=== PATIENT | female | born 1990 | race Caucasian/White ===

== ENCOUNTER 2022-11-03 17:43 | Emergency (ER) | payer BC, SELFPAY ==
--- NOTE | 2022-11-03 18:36 | ED_ITS ---
HPI - Nausea/Vomiting/Diarrhea General Chief complaint: Abdominal Pain <AMEYA Jimenez Last Filed: 11/03/22 18:39> Stated complaint: Nausea and Vomiting <AMEYA Jimenez Last Filed: 11/03/22 18:39> Time Seen by Provider: 11/03/22 22:35 <AMEYA Jimenez - Last Filed: 11/03/22 18:39> Source: patient <Rena Alvarado DO - Last Filed: 11/04/22 00:45> Mode of arrival: ambulatory <Rena Alvarado DO - Last Filed: 11/04/22 00:45> Limitations: no limitations <Rena Alvarado DO - Last Filed: 11/04/22 00:45> History of Present Illness HPI Narrative: 31 yo female hx of endometriosis here with n/v monthly related to her monthly cycle though she does not get her menses due to IUD. This happens frequently to her no change in monthly exacerbation. She has no urinary symptoms. No localized abdominal pain. No fevers. She did try to call her PCP for zofran but they would not fill Rx. The patient notes this episode lasted longer and she had decreased intake compared to other bouts. <Rena Alvarado DO - Last Filed: 11/04/22 00:45> MD elicited complaint: nausea, vomiting and abdominal pain <Rena Alvarado DO - Last Filed: 11/04/22 00:45> Pertinent past history: other (endometriosis) <Rena Alvarado DO - Last Filed: 11/04/22 00:45> Onset (ago): day(s) (2) <Rena Alvarado DO - Last Filed: 11/04/22 00:45> Description of vomiting: watery <Rena Alvarado DO - Last Filed: 11/04/22 00:45> Associated nausea: Yes <Rena Alvarado DO - Last Filed: 11/04/22 00:45> Associated abdominal pain: Yes <Rena Alvarado DO - Last Filed: 11/04/22 00:45> Location of pain: suprapubic <Rena Alvarado DO - Last Filed: 11/04/22 00:45> Radiation: diffuse <Rena Alvarado DO - Last Filed: 11/04/22 00:45> Pain consistency: intermittent <Rena ChristianoDO - Last Filed: 11/04/22 00:45> Severity: mild <Rena ChristianoDO - Last Filed: 11/04/22 00:45> Quality: cramping <Rena AlvaradoDO - Last Filed: 11/04/22 00:45> Exacerbating factors: eating <Rena ChristianoDO - Last Filed: 11/04/22 00:45> Relieving factors: none <Rena Alvarado DO - Last Filed: 11/04/22 00:45> Context: other (monthly) <Rena Albia, DO - Last Filed: 11/04/22 00:45> Associated symptoms: loss of appetite, malaise and nausea/vomiting <Rena Alvarado DO - Last Filed: 11/04/22 00:45> Related Data Home medications: Previous Rx's Medication Instructions Recorded ondansetron 4 mg disintegrating 4 mg PO Q8H PRN nausea and 11/04/22 tablet vomiting #20 tabs <AMEYA Jimenez Last Filed: 11/03/22 18:39> Allergies/Adverse reactions: Allergies Allergy/AdvReac Type Severity Reaction Status Date / Time amoxicillin [From Augmentin] Allergy Hives Verified 11/03/22 18:38 clavulanic acid Allergy Hives Verified 11/03/22 18:38 [From Augmentin] Sulfa (Sulfonamide Allergy Hives Verified 11/03/22 18:38 Antibiotics) <AMEYA Jimenez Last Filed: 11/03/22 18:39> Review of Systems Review of Systems: Constitutional : No Weight loss, No Fever, No Chills ENT/Mouth : No sore throat, No Rhinorrhea Eyes: No Swelling, No Redness Cardiovascular : No Chest Pain, No SOB, NoEdema Respiratory : No Cough, No Sputum, No Wheezing Gastrointestinal : Positive Nausea, Positive Vomiting, no Diarrhea, positive abdominal Pain, No Hematochezia, No Melena Genitourinary : No Dysuria, No Urinary Frequency, No Hematuria, No Urgency Musculoskeletal : No joint pain, No Myalgias, No Joint Swelling Skin : No Skin Lesions, No rash Neuro : No Weakness, No Numbness, No Dizziness, No Headache Psych : No Anxiety/Panic, No Depression Heme/Lymph: No Bruising, No Lymphadenopathy Endocrine : No Polyuria, No Polydipsia All other systems reviewed and are negative. <Rena Alvarado DO - Last Filed: 11/04/22 00:45> Gastrointestinal: Gastrointestinal: Reports nausea <Rena Alvarado DO - Last Filed: 11/04/22 00:45> [facility] Past Medical History Attestation statement: The following information was validated with the patient. <Rena Alvarado DO - Last Filed: 11/04/22 00:45> Medical History: Medical History Endometriosis <AMEYA Jimenez - Last Filed: 11/03/22 18:39> Surgical History: Surgical History H/O laparoscopy <AMEYA Jimenez - Last Filed: 11/03/22 18:39> Social History Social History: Social History (Updated 11/03/22 @ 23:13 by Rena Alvarado DO) Patient Tobacco Use Status: Never used Tobacco Advance Directives: Yes Advance Directives Information Provided: Yes Advance Directives on File: No <AMEYA Jimenez - Last Filed: 11/03/22 18:39> Physical Exam Vital Signs: Vital Signs: Last Vital Signs Temp 98.4 F 11/03/22 18:39 Pulse 91 11/03/22 18:39 Resp 18 11/03/22 18:39 BP 148/77 H 11/03/22 18:39 Pulse Ox 98 11/03/22 18:39 O2 Del Method 11/03/22 18:39 BMI result Body Mass Index 41.5 <AMEYA Jimenez - Last Filed: 11/03/22 18:39> Vital Signs: Last Vital Signs Temp 98.4 F 11/03/22 18:39 Pulse 91 11/03/22 18:39 Resp 18 11/03/22 18:39 BP 148/77 H 11/03/22 18:39 Pulse Ox 98 11/03/22 18:39 O2 Del Method 11/03/22 18:39 BMI result Body Mass Index 41.5 <Rena Alvarado DO - Last Filed: 11/04/22 00:45> Appearance: Alert. Oriented X3. No acute distress. Eyes: Pupils equal, round and reactive to light. ENT: Pharynx normal. Neck: Normal inspection. Neck supple. CVS: Normal heart rate and rhythm. Pulses normal. Respiratory: No respiratory distress. Breath sounds normal. Abdomen: Soft and nontender. Skin: Skin warm and dry. Normal skin color. Normal skin turgor. Extremities: No lower extremity edema. No calf ttp Neuro: Oriented X 3. No motor deficit. No sensory deficit. 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 Tells me has drank 20 oz of liquids all day. Reports lower abd pain. Told to come into ED by PCP, they told her shes dehydrated. Physical- TTP to lowr abdomen. Appears comfortable nontoxic. Plan labs,UA, Urine preg, Flu/COVID/RSV, fluids <AMEYA Jimenez - Last Filed: 11/03/22 18:39> Reevaluation(s) Reevaluation #1: feels better stable for DC <Rena Alvarado DO - Last Filed: 11/04/22 00:45> Medications Administered Discontinued Medications Generic Name Dose Route Start Last Admin Trade Name Freq PRN Reason Stop Dose Admin Sodium Chloride 1,000 mls @ 999 mls/hr 11/03/22 18:45 11/03/22 22:53 Ns IV 11/03/22 19:45 999 mls/hr .Q1H1M MAREK Administration Lactated Ringer's 1,000 mls @ 999 mls/hr 11/03/22 23:00 11/03/22 23:03 Lr IV 11/04/22 00:00 999 mls/hr .Q1H1M MAREK Administration Ondansetron HCl 4 mg 11/03/22 22:49 11/03/22 23:03 Ondansetron Hcl 4 Mg/2 Ml Vial IVPUSH 11/03/22 22:50 4 mg ONCE ONE Administration <AMEYA Jimenez - Last Filed: 11/03/22 18:39> Medications Administered Discontinued Medications Generic Name Dose Route Start Last Admin Trade Name Siobhan PRN Reason Stop Dose Admin Sodium Chloride 1,000 mls @ 999 mls/hr 11/03/22 18:45 11/03/22 22:53 Ns IV 11/03/22 19:45 999 mls/hr .Q1H1M MAREK Administration Lactated Ringer's 1,000 mls @ 999 mls/hr 11/03/22 23:00 11/03/22 23:03 Lr IV 11/04/22 00:00 999 mls/hr .Q1H1M MAREK Administration Ondansetron HCl 4 mg 11/03/22 22:49 11/03/22 23:03 Ondansetron Hcl 4 Mg/2 Ml Vial IVPUSH 11/03/22 22:50 4 mg ONCE ONE Administration <Rena Alvarado DO - Last Filed: 11/04/22 00:45> Medical Decision Making Medical Decision Making MDM Narrative: 31 yo female with hx of endometriosis and then monthly n/v that cycles around her time when she should get her menses though she does not due to IUD. She has benign abdominal exam no fevers. I do not suspect appendicitis or cholelithiasis. At this time basic labs, UA, IVF and zofran - will PO challenge the patient once she can do that anticipate DC home with supportive measures. <Rena Alvarado DO - Last Filed: 11/04/22 00:45> Differential Diagnoses: Differential diagnosis (gastroenteritis, gastritis, UTI) <Rena Alvarado DO - Last Filed: 11/04/22 00:45> Lab Attestation: I reviewed the patient's lab results. <Rena Alvarado DO - Last Filed: 11/04/22 00:45> Tests considered but not performed: Tests Considered But Not Performed (pelvis ultrasound - chronic issue doubt changes benign abdominal exam I do not suspect torsion) <Rena Alvarado DO - Last Filed: 11/04/22 00:45> Discharge Plan Discharge Clinical Impression: Vomiting Qualifiers: Vomiting type: unspecified Nausea presence: with nausea Qualified Code(s): R11.2 - Nausea with vomiting, unspecified <AMEYA Jimenez Last Filed: 11/03/22 18:39> Patient Disposition: Home, Self-Care <AMEYA Jimenez Last Filed: 11/03/22 18:39> Instructions: Acute Nausea and Vomiting (ED) <AMEYA Jimenez - Last Filed: 11/03/22 18:39> Additional Instructions: return to ED for any worsening symptoms or concerns stay hydrated drink plenty of fluids, stick to bland diet for 3 days follow up with your OBGYN if this continues <AMEYA Jimenez - Last Filed: 11/03/22 18:39> Prescriptions: New ondansetron 4 mg tablet,disintegrating 4 mg PO Q8H PRN (Reason: nausea and vomiting) Qty: 20 0RF <AMEYA Jimenez - Last Filed: 11/03/22 18:39> Stand Alone Forms: Work/School Release <AMEYA Jimenez - Last Filed: 11/03/22 18:39>
[2022-11-03 18:39] VITALS: BP 148/77; PULSE 91; RESP 18; TEMP 36.9; O2SAT 98; BMI 41.5
[2022-11-03 19:50] LABS: MANUAL DIFF FLAG NO
[2022-11-03 19:54] LABS: Basophils Percent Auto 0.4 % (0-2); Eosinophils Absolute Auto 0.5 X10*3/uL (0.0-0.4); Hematocrit 40.5 % (37.0-47.0); Hemoglobin 13.9 g/dl (12.0-16.0); Imm Gran Abs Auto 0.02 X10*3/uL (0.00-0.03); Imm Gran Pct Auto 0.2 % (0.0-0.4); Lymphocytes Absolute Auto 2.6 X10*3/uL (1.2-4.9); Mean Corpuscular HGB Conc 34.3 g/dl (31.0-35.0); Mean Corpuscular Hemoglobin 29.8 pg (27.0-33.0); Mean Corpuscular Volume 86.9 fL (80.0-98.0); Mean Platelet Volume 10.2 fL (9.4-12.3); Monocytes Absolute Auto 0.4 X10*3/uL (0.1-1.2); Monocytes Percent Auto 4.5 % (2-11); Neutrophils Absolute Auto 6.2 x10*3/uL (2.0-8.3); Neutrophils Percent Auto 62.9 % (45-73); Platelet Count 214 X10*3/uL (160-400); Red Blood Count 4.66 X10*6/uL (4.20-5.50); Red Cell Distribution Width 11.8 % (11.0-16.0); White Blood Count 9.8 X10*3/uL (4.8-10.8)
[2022-11-03 20:39] LABS: Influenza A PCR NEGATIVE (Negative); Influenza B PCR NEGATIVE (Negative); Resp Syncy Virus RNA Qual PCR NEGATIVE (Negative); SARS COV2 PCR INHOUSE NEGATIVE (Negative)
[2022-11-03] MEDS: 0.9 % Sodium Chloride 1,000 ML 999 ML IV (22:53)
[2022-11-03] MEDS: Lactated Ringers 1,000 ML 999 ML IV (23:03)
[2022-11-03] MEDS: ondansetron HCL 4 MG/2 ML VIAL IVPUSH (23:03)
[2022-11-03 23:23] LABS: Alanine Aminotransferase 30 U/L (0-31); Albumin Level 4.6 g/dL (3.5-5.0); Alkaline Phosphatase 81 U/L (39-117); Anion Gap 12 (12-20); Aspartate Amino Transferase 22 U/L (5-31); Blood Urea Nitrogen 8 mg/dL (9-16); Calcium 9.2 mg/dL (8.4-10.2); Carbon Dioxide 28 mmol/L (22-29); Chloride 102 mmol/L (96-108); Creatinine Clr Calc Pharmacy 163.9; Estimated Glomerular Filt Rate > 60; Glucose Random 91 mg/dL (60-115); Potassium 4.1 mmol/L (3.3-5.1); Sodium 138 mmol/L (135-145)
--- NOTE | 2022-11-03 23:55 | PC.NURSE ---
Pt asked for urine sample pt report that they are unable to void at this time.
[2022-11-04 00:36] LABS: Appearance Urine Clear; Color Urine Yellow; Glucose Urine UA Negative (Negative); Leukocyte Esterase Urine Negative (Negative); Nitrite Urine Negative (Negative); PH 7.5 (5.0-9.0); Urine Blood Negative (Negative); Urine Ketones Trace mg/dL (Negative); Urine Protein Negative (Neg-Trace)
[2022-11-04 00:38] LABS: UPreg QC Valid YES; Urine Pregnancy NEGATIVE (NEGATIVE)
[2022-11-04 00:54] LABS: Bilirubin Total 0.6 mg/dL (0.0-1.0)
[2022-11-04 01:01] VITALS: BP 132/92; PULSE 88; RESP 18; TEMP 37.2; O2SAT 98
== END 2022-11-04 01:02 | disposition home or self-care (01) ==
PROVIDERS: Physician Assistant; Emergency Provider Emergency Medicine
DX: R11.2 Nausea with vomiting, unspecified (principal); R10.2 Pelvic and perineal pain; Z20.822 Contact with and (suspected) exposure to COVID-19; Z79.899 Other long term (current) drug therapy
CPT/HCPCS: 0241U; 36415; 80053; 81003; 81025; 83735; 85025; 96374; 99283; 99284; J2405

== ENCOUNTER 2025-03-30 20:14 | Emergency (ER) | payer BC, OTHER, SELFPAY ==
--- NOTE | ~2025-03-30 | CT_ITS ---
CLINICAL HISTORY: RLQ pain, R O appendicitis Exam: CT abdomen and pelvis with intravenous contrast. Comparison: None. Findings: CT abdomen: Lung bases are clear. No acute bony lesions. Low-attenuation throughout the liver is indicative of fatty infiltration. No focal liver lesions seen. Main portal vein is patent. Spleen, pancreas, gallbladder, and left adrenal gland are unremarkable. 2.2 cm nodule within the right adrenal gland with Hounsfield units ranging from 15-45. Symmetric enhancement of the kidneys without mass or hydronephrosis. Small bowel loops are of normal caliber. Several ovoid hyperdensities are seen within the gastrointestinal tract including the stomach, small bowel, and cecum. I suspect these are related to calcium tablet ingestion. No free fluid or free air. No pathologically enlarged lymph nodes. CT pelvis: No findings of appendicitis. No colonic wall thickening or pericolonic inflammatory stranding is evident. No free fluid or free air. No bladder calculi. 1.5 cm right adnexal cyst. Impression: 1. Negative CT of the appendix. 2. 1.5 cm right adnexal cyst. May consider pelvic ultrasound if the patient's symptoms are felt to be gynecologic in nature. 3. Right adrenal gland nodule. Statistically, this is likely an adrenal adenoma. However, this is not a definitive determination on single phase CT study. Correlation with any known primary malignancy is suggested. Nonemergent CT or MRI of the abdomen using the adrenal gland mass protocol is suggested. This document has been electronically signed by: Gage Bauer MD on 03/31/2025 03:17:13
[2025-03-30 21:07] VITALS: BP 126/82; PULSE 96; RESP 14; TEMP 36.7; O2SAT 98; BMI 39.0
[2025-03-30 21:32] LABS: Hematocrit 35.9 % (37.0-47.0); Hemoglobin 12.7 g/dl (12.0-16.0); Mean Corpuscular HGB Conc 35.4 g/dl (31.0-35.0); Mean Corpuscular Hemoglobin 30.2 pg (27.0-33.0); Mean Corpuscular Volume 85.3 fL (80.0-98.0); Mean Platelet Volume 9.7 fL (9.4-12.3); Platelet Count 201 X10*3/uL (160-400); Red Blood Count 4.21 X10*6/uL (4.20-5.50); Red Cell Distribution Width 11.9 % (11.0-16.0); White Blood Count 9.7 X10*3/uL (4.8-10.8)
[2025-03-30 21:46] LABS: Alanine Aminotransferase 32 U/L (0-31); Albumin Level 4.4 g/dL (3.5-5.0); Alkaline Phosphatase 88 U/L (39-117); Anion Gap 14 (12-20); Aspartate Amino Transferase 24 U/L (5-31); Bilirubin Total 0.5 mg/dL (0.0-1.0); Blood Urea Nitrogen 12 mg/dL (9-16); Calcium 9.3 mg/dL (8.4-10.2); Carbon Dioxide 26 mmol/L (22-29); Chloride 104 mmol/L (96-108); Creatinine Clr Calc Pharmacy 145.4; Estimated Glomerular Filt Rate > 60; Glucose Random 89 mg/dL (60-115); Potassium 4.1 mmol/L (3.3-5.1); Sodium 140 mmol/L (135-145); Total Protein 7.1 g/dL (6.5-8.0)
[2025-03-31 01:40] VITALS: BP 128/83; PULSE 86; RESP 16; TEMP 36.8; O2SAT 100
--- NOTE | 2025-03-31 01:46 | ED_ITS ---
HPI - General Adult General Chief complaint: General Medical Stated complaint: belly button wound Time Seen by Provider: 03/31/25 01:44 Source: patient Mode of arrival: ambulatory Limitations: no limitations History of Present Illness ED Provider: Dr. Jermaine Cox HPI narrative: 34-year-old female with a history endometriosis status post hysterectomy April 2024 who presents emergency department for evaluation of periumbilical pain. She states the pain came on gradually 1 day prior to evaluation. She states the pain is a constant, stretching /pulling pain which is 7/10 at its worst. The pain waxes and wanes in intensity. She states that she had a laparoscopic hysterectomy with a laparoscopic incisions I through her belly button. She states that this area is painful. She has noted some of moist your from the belly button but no blood. Triage nurse did insert a Q-tip in to the patient's umbilicus and there was blood on the Q-tip. The pain has migrated to the right lower quadrant area. Patient had associated nausea with no vomiting. She has had several loose stools since onset of the pain. She denied fever, chills, frequency, urgency, dysuria. She has not noted any dark stools, black stools or bloody stools. This is a 1st episode of this type of pain. Related Data Previous Rx's ?Medication ?Instructions ?Recorded ondansetron 4 mg disintegrating 4 mg PO Q8H PRN nausea and 11/04/22 tablet vomiting #20 tabs cephalexin 500 mg capsule 500 mg PO QID 7 days #28 caps 03/31/25 Allergies Allergy/AdvReac Type Severity Reaction Status Date / Time amoxicillin [From Augmentin] Allergy Hives Verified 03/30/25 21:11 clavulanic acid Allergy Hives Verified 03/30/25 21:11 [From Augmentin] Sulfa (Sulfonamide Allergy Hives Verified 03/30/25 21:11 Antibiotics) Review of Systems 2 Review of Systems: Yes all other systems are reviewed and are negative [facility] Past Medical History [facility] Narrative: Social history: The patient denies tobacco use, she occasionally drinks alcohol, she does smoke marijuana Medical History Endometriosis Surgical History H/O laparoscopy Social History Social History (Updated 11/03/22 @ 23:13 by Rena Alvarado DO) Patient Tobacco Use Status: Never used Tobacco Physical Exam ED Vital Signs: Vital Signs - 24 hr 03/30/25 21:07 03/31/25 01:40 Temperature 98.0 F 98.2 F Pulse Rate 96 86 Respiratory Rate 14 16 Blood Pressure 126/82 128/83 Pulse Oximetry 98 100 Oxygen Delivery Method Room Air Room Air BMI result Body Mass Index 39.0 vital signs were normal Exam: General: Awake, alert in no distress Head: Normocephalic, atraumatic EENT: PERRL, Lids normal, sclera normal, conjunctiva normal, nose normal , ears normal, throat without erythema or exudates Neck: Supple, no adenopathy Lung: breath sounds symmetric, no wheezing, rales or rhonchi Chest: symmetric movement, nontender Heart: regular rate and rhythm, normal S1, S2 no murmurs or rubs Abdomen: soft, [id number] periumbilical tenderness, moderate right lower quadrant tenderness, nondistended, normal bowel sounds, no erythema noted around the umbilical area, I did insert a Q-tip into the umbilicus and the patient did have pain and there was a small amount of red blood on the Q-tip, no purulent discharge noted Back: no vertebral tenderness, no CVAT Extremities: no deformities, moves all extremities symmetrically Neuro: Awake, alert, oriented, normal speech, cranial nerves intact, moves all extremities symmetrically Psych: Pleasant, cooperative Medications Administered Discontinued Medications Generic Name Dose Route Start Last Admin Trade Name Freq PRN Reason Stop Dose Admin Bacitracin 1 appl 03/31/25 04:59 03/31/25 05:09 Bacitracin Oint 0.9 Gm Packet TOPICAL 03/31/25 05:00 1 appl ONCE ONE Administration Protocol Cephalexin HCl 500 mg 03/31/25 04:59 03/31/25 05:11 Cephalexin 500 Mg Capsule PO 03/31/25 05:00 500 mg ONCE ONE Administration Sodium Chloride 1,000 mls @ 999 mls/hr 03/31/25 02:06 03/31/25 03:37 Ns IV 03/31/25 03:06 Infused .Q1H1M STA Infusion Iohexol 85 ml 03/31/25 02:31 03/31/25 02:32 Iohexol 350 Mg/Ml 100 Ml Infus..Btl IV 03/31/25 02:32 85 ml ONCE ONE Administration Ketorolac Tromethamine 15 mg 03/31/25 02:06 03/31/25 02:15 Ketorolac Tromethamine 15 Mg/Ml Vial IVPUSH 03/31/25 02:07 15 mg ONCE STA Administration Ondansetron HCl 4 mg 03/31/25 02:06 03/31/25 02:15 Ondansetron Hcl 4 Mg/2 Ml Vial IVPUSH 03/31/25 02:07 4 mg ONCE ONE Administration Medical Decision Making Medical Decision Making MDM Narrative: 34-year-old female with a history endometriosis status post hysterectomy April 2024 who presents emergency department for evaluation of 710 constant, waxing and waning periumbilical and right lower quadrant pain times 2 days with blood noted on Q-tip with probing the umbilicus. Her pain was associated with nausea and loose stools but otherwise no other concerning systemic symptoms. Vital signs were normal. Exam revealed periumbilical tenderness, right lower quadrant tenderness and blood on the Q-tip when probing the umbilicus. There was no erythema noted around the umbilical area and there was no purulent discharge noted. Differential diagnosis: Includes but is not limited to Umbilical hernia, umbilical cellulitis, appendicitis, pancreatitis, diverticulitis, partial bowel obstruction, anemia, electrolyte abnormalities, urinary tract infection Course: My interpretation patient's laboratory evaluation was as follows: CBC was normal. CMP was normal. Lipase was normal. radiologist CT reading of abdomen pelvis with IV contrast revealed a normal appendix. Patient to incidental findings: 1) 2.2 cm nodule right adrenal gland -patient states that she is aware of this and has been evaluated for this in the past. She is also scheduled for an MRI this week of her abdomen pelvis to evaluate her for further endometriosis; 2 ) 1.5 cm adnexal cyst. At this time I do not have a clear etiology for the patient's pain however given the blood on the Q-tip when probing her umbilicus I believe that she may have umbilical cellulitis and I did discuss this with her. Patient was prescribed Keflex 500 mg 4 times a day for 7 days. She was advised to apply bacitracin 2 times a day to umbilical area, apply heat to this area for 15 minutes 4 to 6 times a day and to watch for signs of worsening cellulitis. She was given printed and verbal instructions and discharged home. Admission/Observation Consideration of admission/observation: Escalation of care including admission/observation considered ( Yes) Lab Data MDM Lab Attestation statement: I reviewed the patient's lab results. 03/30/25 21:26 03/30/25 21:26 Labs: Lab Results 03/30/25 Range/Units 21:26 WBC 9.7 (4.8-10.8) X10*3/uL RBC 4.21 (4.20-5.50) X10*6/uL Hgb 12.7 (12.0-16.0) g/dl Hct 35.9 L (37.0-47.0) % MCV 85.3 (80.0-98.0) fL MCH 30.2 (27.0-33.0) pg MCHC 35.4 H (31.0-35.0) g/dl RDW 11.9 (11.0-16.0) % Plt Count 201 (160-400) X10*3/uL MPV 9.7 (9.4-12.3) fL Absolute Nucleated RBC 0.000 (0.0-0.012) X10*3/uL Nucleated RBC % (auto) 0.0 (0.0-0.2) /100WBC Sodium 140 (135-145) mmol/L Potassium 4.1 (3.3-5.1) mmol/L Chloride 104 (96-108) mmol/L Carbon Dioxide 26 (22-29) mmol/L Anion Gap 14 (12-20) BUN 12 (9-16) mg/dL Creatinine 0.72 (0.5-1.4) mg/dL Estim Creat Clear Calc 145.4 Estimated GFR > 60 Random Glucose 89 (60-115) mg/dL Calcium 9.3 (8.4-10.2) mg/dL Total Bilirubin 0.5 (0.0-1.0) mg/dL AST 24 (5-31) U/L ALT 32 H (0-31) U/L Alkaline Phosphatase 88 (39-117) U/L Total Protein 7.1 (6.5-8.0) g/dL Albumin 4.4 (3.5-5.0) g/dL Lipase 25 (8-78) U/L Radiology Impression Discussion of test interpretation with radiology: I have reviewed the radiologist's reading. Radiologist Impression: CT abdomen: Lung bases are clear. No acute bony lesions. Low-attenuation throughout the liver is indicative of fatty infiltration. No focal liver lesions seen. Main portal vein is patent. Spleen, pancreas, gallbladder, and left adrenal gland are unremarkable. 2.2 cm nodule within the right adrenal gland with Hounsfield units ranging from 15-45. Symmetric enhancement of the kidneys without mass or hydronephrosis. Small bowel loops are of normal caliber. Several ovoid hyperdensities are seen within the gastrointestinal tract including the stomach, small bowel, and cecum. I suspect these are related to calcium tablet ingestion. No free fluid or free air. No pathologically enlarged lymph nodes. CT pelvis: No findings of appendicitis. No colonic wall thickening or pericolonic inflammatory stranding is evident. No free fluid or free air. No bladder calculi. 1.5 cm right adnexal cyst. Impression: 1. Negative CT of the appendix. 2. 1.5 cm right adnexal cyst. May consider pelvic ultrasound if the patient's symptoms are felt to be gynecologic in nature. 3. Right adrenal gland nodule. Statistically, this is likely an adrenal adenoma. However, this is not a definitive determination on single phase CT study. Correlation with any known primary malignancy is suggested. Nonemergent CT or MRI of the abdomen using the adrenal gland mass protocol is suggested. This document has been electronically signed by: Gage Bauer MD on 03/31/2025 03:17:13 Discharge Plan Discharge Clinical Impression: Bacterial skin infection Patient Disposition: Home, Self-Care Instructions: Cellulitis (ED) Additional Instructions: Your blood work was unremarkable. The CT scan of your abdomen pelvis revealed a normal appendix. You did have 2 incidental findings: 1) 1.5 cm right adnexal/ovarian cyst, 2) right adrenal gland nodule At this time, I suspect that you have a skin infection of your belly button. Apply bacitracin or Neosporin twice a day to your belly button. Take Keflex (cephalexin) 500 mg pills, 1 pill 3 times a day for 7 days. Apply heating pad on low or a warm compress for 15 minutes 4 to 6 times a day to your belly button area to help the healing process. Take ibuprofen 200 mg pills, 2 pills every 6 hours as needed for pain or fever. Take Tylenol (acetaminophen) 500 mg pills, 2 pills every 6 hours as needed for pain or fever. If you have increased pain especially in the right lower side of your belly then appendicitis needs to be reconsidered and I want you to return to the emergency department so that we can re-evaluate you. Follow-up with your doctor in 2 days. Please return to the emergency department if your symptoms get worse or if you develop any symptoms that are concerning to you. Prescriptions: New cephalexin 500 mg capsule 500 mg PO QID 7 Days Qty: 28 0RF No Action ondansetron 4 mg tablet,disintegrating 4 mg PO Q8H PRN (Reason: nausea and vomiting) Qty: 20 0RF Interventions: ED Discharge Assessment Last Done: 03/31/25 05:14 Discharge Date/Time: 03/31/25 05:18 Print Language: Wolof
[2025-03-31] MEDS: 0.9 % Sodium Chloride 1,000 ML 999 ML IV (02:11)
[2025-03-31] MEDS: Ketorolac Tromethamine 15 MG/ML VIAL IVPUSH (02:15)
[2025-03-31] MEDS: ondansetron HCL 4 MG/2 ML VIAL IVPUSH (02:15)
[2025-03-31 02:21] LABS: Lipase 25 U/L (8-78)
[2025-03-31] MEDS: iohexoL 350 MG/ML 100 ML INFUS..BTL 85 ML IV (02:32)
[2025-03-31 05:05] VITALS: BP 119/75; PULSE 81; RESP 16; TEMP 36.5; O2SAT 100
[2025-03-31] MEDS: Bacitracin Oint 0.9 GM PACKET 1 APPL TOPICAL (05:09)
[2025-03-31] MEDS: cephALEXin 500 MG CAPSULE PO (05:11)
[2025-03-31 05:14] VITALS: BP 119/75; PULSE 81; RESP 16; TEMP 36.5; O2SAT 100
== END 2025-03-31 05:18 | disposition home or self-care (01) ==
PROVIDERS: Emergency Provider Emergency Medicine Emergency Medical Services; PCP Family Medicine
DX: L08.9 Local infection of the skin and subcutaneous tissue, unspecified (principal); E27.8 Other specified disorders of adrenal gland; R10.31 Right lower quadrant pain; R11.0 Nausea; Z79.899 Other long term (current) drug therapy
CPT/HCPCS: 36415; 74177; 80053; 83690; 85027; 96361; 96374; 96375; 99284; J1885; J2405; Q9967

== ENCOUNTER → 2025-03-31 02:07 | Outpatient (BNV) | payer BC, OTHER, SELFPAY | PROVIDERS: Emergency Provider Emergency Medicine Emergency Medical Services; PCP Family Medicine; Visit Provider Radiology Diagnostic Radiology | DX: N83.291 Other ovarian cyst, right side (principal); D35.01 Benign neoplasm of right adrenal gland | CPT/HCPCS: 74177 ==